=== PATIENT | female | born 1955 | race Caucasian/White ===

== ENCOUNTER 2016-07-02 07:21 | Emergency (ER) | payer OTHER ==
--- NOTE | 2016-07-02 07:40 | Emergency Department Record ---
History of Present Illness - General Chief complaint: Lower Extremity Pain Stated complaint: LEG PAIN Time Seen by Provider: 07/02/16 07:34 Source: Patient, RN notes reviewed Mode of Arrival: Ambulatory - History of Present Illness Initial comments: right leg pain which started at 5 am today ,No trauma and no injuries and kidney surg at [facility] feb 2016 , No flank or abdominal pain and history of kidney stones. Dr. Hartman. No vomiting and no nausea and no diarrhea. No back pain and she is on premarin and recent lithotripsy feb 2016 Onset/Timin -: Hour(s) Location: Right, Thigh Improves with: Nothing Worsens with: Nothing Associated Symptoms: Denies other symptoms - Related Data Home Medications Medication Instructions Recorded Confirmed Last Taken Estrogens, Conjugated [Premarin] 1 tab PO BID 10/10/13 07/02/16 07/02/16 Hydrocodone/Acetaminophen 1 tab PO ASDIR PRN 10/10/13 07/02/16 07/02/16 [Hydrocodon-Acetaminophn 10-325] Rabeprazole Sodium [Aciphex] 1 tab PO BID 10/10/13 07/02/16 07/02/16 Risedronate Sodium [Atelvia] 1 tab PO ASDIR 10/10/13 07/02/16 07/02/16 Rosuvastatin Calcium [Crestor] 1 tab PO DAILY 10/10/13 07/02/16 07/02/16 Bupropion HCl [Wellbutrin] 100 mg PO BID 10/18/14 07/02/16 07/02/16 Topiramate [Topiramate] 25 mg PO QHS 11/06/15 07/02/16 07/01/16 Citalopram Hydrobromide [Celexa] 20 mg PO DAILY 07/02/16 07/02/16 07/02/16 Pramipexole Di-HCl [Mirapex] 0.25 mg PO DAILY 07/02/16 07/02/16 07/02/16 Previous Rx's Medication Instructions Recorded Cyclobenzaprine HCl [Flexeril] 10 mg PO TID #30 tablet 07/02/16 Naproxen [Naprosyn] 500 mg PO Q12H #30 tab. 07/02/16 Allergies Allergy/AdvReac Type Severity Reaction Status Date / Time atorvastatin Allergy Unknown PT UNSURE Verified 11/06/15 14:36 OF REACTION ibuprofen Allergy Unknown PT UNSURE Verified 11/06/15 14:36 OF REACTION aspirin Allergy VOMITING Verified 11/06/15 14:36 Allergies: Allergy Unknown PT UNSURE Uncoded 11/06/15 14:36 OF REACTION Travel Screening - Travel/Exposure Within Last 30 Days Have you traveled within the last 30 days?: No - Travel/Exposure Within Last Year Have you traveled outside the [place] in the last year?: No - Additonal Travel Details Have you been exposed to anyone with a communicable illness?: No - Travel Symptoms Symptom Screening: None Review of Systems Reviewed: No additional complaints except as noted below Constitutional: Reports: As per HPI. Denies: Chills, Fever, Malaise, Night sweats, Weakness, Weight change Eyes: Reports: As per HPI. Denies: Eye discharge, Eye pain, Photophobia, Vision change ENT: Reports: As per HPI. Denies: Congestion, Dental pain, Ear pain, Epistaxis , Hearing loss, Throat pain Respiratory: Reports: As per HPI. Denies: Cough, Dyspnea, Hemoptysis, Stridor, Wheezes Cardiovascular: Reports: As per HPI. Denies: Arrhythmia, Chest pain, Dyspnea on exertion, Edema, Murmurs, Orthopnea, Palpitations, Paroxysmal nocturnal dyspnea, Rheumatic Fever, Syncope Endocrine: Reports: As per HPI. Denies: Fatigue, Heat or cold intolerance, Polydipsia, Polyuria Gastrointestinal: Reports: As per HPI, Abdominal pain. Denies: Constipation, Diarrhea, Hematemesis, Hematochezia, Melena, Nausea, Vomiting Genitourinary: Reports: As per HPI. Denies: Abnormal menses, Discharge, Dyspareunia, Dysuria, Frequency, Hematuria, Incontinence, Retention, Urgency Musculoskeletal: Reports: As per HPI, Other (right leg pain). Denies: Arthralgia, Back pain, Gout, Joint swelling, Myalgia, Neck pain Skin: Reports: As per HPI. Denies: Bruising, Change in color, Change in hair/ nails, Lesions, Pruritus, Rash Neurological: Reports: As per HPI. Denies: Abnormal gait, Confusion, Headache, Numbness, Paresthesias, Seizure, Tingling, Tremors, Vertigo, Weakness Psychiatric: Reports: As per HPI. Denies: Anxiety, Auditory hallucinations, Depression, Homicidal thoughts, Suicidal thoughts, Visual hallucinations Hematological/Lymphatic: Reports: As per HPI. Denies: Anemia, Blood Clots, Easy bleeding, Easy bruising, Swollen glands Past Medical History - SOCIAL HISTORY Smoking Status: Former smoker Alcohol Use: None Drug Use: None - RESPIRATORY Hx Respiratory Disorders: Yes - CARDIOVASCULAR Hx Cardio Disorders: Yes Comment:: murmur - NEURO Hx Neuro Disorders: Yes Hx Headaches: Yes Hx of Migraines: Yes - GI Hx GI Disorders: Yes Hx Reflux: Yes Hx Irritable Bowel: Yes - Hx Genitourinary Disorders: No Comment:: renal mass - ENDOCRINE Hx Endocrine Disorders: No - MUSCULOSKELETAL Hx Musculoskeletal Disorders: Yes Hx Arthritis: Yes Hx Osteoporosis: Yes - PSYCH Hx Psych Problems: Yes Hx Anxiety: Yes Hx Depression: Yes Comment:: panic attacks - HEMATOLOGY/ONCOLOGY Hx Hematology/Oncology Disorders: No Family Medical History Any Significant Family History?: No Physical Exam - General General Appearance: Alert, Oriented x3, Cooperative, No acute distress - Head Head exam: Normal inspection - Eye Eye exam: Normal appearance, PERRL Pupils: Normal accommodation - ENT ENT exam: Normal exam, Mucous membranes moist, Normal external ear exam, Normal orophraynx, TM's normal bilaterally Ear exam: Normal external inspection. negative: External canal tenderness Nasal Exam: Normal inspection. negative: Discharge, Sinus tenderness Mouth exam: Normal external inspection, Tongue normal Teeth exam: Normal inspection. negative: Dental caries Throat exam: Normal inspection. negative: Tonsillar erythema, Tonsillar exudate - Neck Neck exam: Normal inspection, Full ROM. negative: Tenderness - Respiratory Respiratory exam: Normal lung sounds bilaterally. negative: Respiratory distress - Cardiovascular Cardiovascular Exam: Regular rate, Normal rhythm, Normal heart sounds - GI/Abdominal GI/Abdominal exam: Soft, Normal bowel sounds. negative: Tenderness - Rectal Rectal exam: Deferred - exam: Deferred - Extremities Extremities exam: Normal inspection, Full ROM, Normal capillary refill, Tenderness (right lower and starts in the groin and goes down the leg.) - Back Back exam: Reports: Normal inspection, Full ROM. Denies: Muscle spasm, Rash noted, Tenderness - Neurological Neurological exam: Alert, Normal gait, Oriented X3, Reflexes normal - Psychiatric Psychiatric exam: Normal affect, Normal mood - Skin Skin exam: Dry, Intact, Normal color, Warm Course Vital Signs 07/02/16 07:24 Temperature 97.8 F Pulse Rate 88 Respiratory 20 Rate Blood Pressure 149/79 Pulse Ox 96 - Reevaluation(s) Reevaluation #1: some better and still having later leg pain. 07/02/16 10:40 Medical Decision Making - Data Complexity MDM Data: Labs Ordered and/or Reviewed, X-Ray Ordered and/or Reviewed (venous dopler neg, Ct scan neg with stones in the left kidney and patient doesn't have left sided pain) - Lab Data Result diagrams: 07/02/16 07:52 07/02/16 07:52 Disposition Clinical Impression: Lumbar strain Qualifiers: Encounter type: initial encounter Qualified Code(s): S39.012A - Strain of muscle, fascia and tendon of lower back, initial encounter Radiculopathy Qualifiers: Spinal region: lumbosacral Qualified Code(s): M54.17 - Radiculopathy, lumbosacral region Disposition: Home, Self-Care Condition: (1) Good Instructions: Musculoskeletal Pain (ED) Additional Instructions: follow up with family in 2 days Prescriptions: Cyclobenzaprine HCl [Flexeril] 10 mg PO TID #30 tablet Naproxen [Naprosyn] 500 mg PO Q12H #30 tab.dr Forms: Patient Portal Access Time of Disposition: 10:45
[2016-07-02] MEDS ORDERED: HYDROMORPHONE HCL 1 MG/ML CPJ IVP ONE ×2 (07:46→08:32)
[2016-07-02] MEDS ORDERED: 0.9 % SODIUM CHLORIDE 1000ML 1,000 ML IV PRN (07:46)
[2016-07-02 07:58] LABS: BASO % 0.6 % (0-6); EOS % 2.6 % (0-6); GRAN % 58.5 % (47-80); HEMATOCRIT 38.6 % (35.0-47.0); HEMOGLOBIN 12.3 gm/dl (11.6-16.0); LYMPH % 34.5 % (16-45); MEAN CELL VOLUME 87.1 fl (81-97); MEAN CORPUSCULAR HEMOGLOBIN 27.8 pg (27-33); MEAN CORPUSCULAR HGB CONC 31.9 g/dl (32-36); MEAN PLATELET VOLUME 8.8 fl (7.4-10.4); MONO % 3.8 % (0-9); PLATELET COUNT 353 K/uL (130-400); RED BLOOD COUNT 4.43 M/uL (3.80-5.40); RED CELL DISTRIBUTION WIDTH 13.4 % (11.5-14.5); WHITE BLOOD COUNT W/O DIFF 9.4 K/uL (4.2-12.2)
[2016-07-02 08:10] LABS: ALBUMIN 3.8 gm/dL (3.5-5.0); ALKALINE PHOSPHATASE 87 U/L (38-126); ALT/SGPT 13 U/L (9-52); ANION GAP 8.3 (7-16); AST/SGOT 17 U/L (14-36); BILIRUBIN,TOTAL 0.24 mg/dL (0.2-1.3); BLOOD UREA NITROGEN 13 mg/dL (7-17); CARBON DIOXIDE 23.7 mmol/L (22-30); CREATININE 0.8 mg/dL (0.52-1.04); EST GLOMERULAR FILTRATION RATE > 60 ml/min; GLUCOSE,RANDOM 147 mg/dL (70-110); TOTAL PROTEIN 6.8 gm/dL (6.3-8.2)
[2016-07-02 08:30] LABS: URINE APPEARANCE CLEAR; URINE BILIRUBIN NEGATIVE (NEGATIVE); URINE BLOOD TRACE-I (NEGATIVE); URINE COLOR YELLOW; URINE GLUCOSE (UA) NEGATIVE (NEGATIVE); URINE KETONE NEGATIVE (NEGATIVE); URINE LEUKOCYTE ESTERASE NEGATIVE (NEGATIVE); URINE NITRITE NEGATIVE (NEGATIVE); URINE PROTEIN TRACE (NEGATIVE); URINE UROBILINOGEN 0.2 E.U./dL (0.20 - 1.00)
[2016-07-02 08:40] LABS: URINE BACTERIA NONE SEEN; URINE EPITHELIAL CELLS 0 - 2 (FEW); URINE RBC 0 - 2 (NONE SEEN); URINE WBC NONE SEEN (0-2/hpf)
[2016-07-02] MEDS ORDERED: LORAZEPAM 2 MG/ML VIAL IV ONE (09:20)
--- NOTE | 2016-07-03 10:26 | CT SCAN REPORT ---
EXAM: EMERGENCY CT OF THE ABDOMEN AND PELVIS WITHOUT CONTRAST HISTORY: LEFT THIGH PAIN AND RIGHT LEG PAIN, HISTORY OF KIDNEY STONES. TECHNIQUE: Axial CT scan of the abdomen and pelvis was performed without oral or IV contrast. Comparison: CT of the abdomen and pelvis 06/03/16. FINDINGS: No intrarenal calculi identified within the right kidney. No hydronephrosis or hydroureter on the right with no right ureteral calculus seen and no bladder calculus. On the left, there is some apparent postop/post procedure change in the lower pole of the left kidney as before. There is an approximately 8.7 mm calcification in the left renal pelvis which is nonobstructing currently, however, there is a smaller calcification at the level of the left UPJ measuring about 3.3 mm in size which is likely causing a component of obstruction on the left with moderate hydronephrosis present today, progressed from the prior study. Beyond the left UPJ itself, the left ureter appears nondilated with no additional more distal left ureteral calculus seen. Surgical clips in the gallbladder fossa as before consistent with cholecystectomy. The uterus is again not identified consistent with hysterectomy and apparent metallic mesh along the anterior abdominal wall as before consistent with prior anterior abdominal wall hernia repair. Evaluation of the bowel and viscera is very limited without oral or IV contrast. There again appears to be an approximately 11 mm predominantly fat density nodule associated with the left adrenal gland as before consistent with a small adrenal myolipoma unchanged from before. Allowing for the lack of contrast, no definite hepatic, pancreatic, or renal mass identified. Mild diverticulosis left side of the colon with a few in the right side of the colon as well. No diverticulitis evident. The appendix is visualized and appears negative with no appendicitis identified. No free intraperitoneal air or free intraperitoneal fluid identified. Hypertrophic spurring particularly in the lower thoracic spine and facet joint arthropathy particularly in the lower lumbar spine. IMPRESSION: 1. APPEARANCE CONSISTENT WITH AN APPROXIMATELY 3.3 MM CALCULUS AT THE LEFT UPJ CAUSING A COMPONENT OF OBSTRUCTION OF THE LEFT KIDNEY. THERE IS AN ADDITIONAL LARGER, BUT CURRENTLY NONOBSTRUCTING CALCULUS WITHIN THE LEFT RENAL PELVIS ITSELF WELL. 2. POSTOP/POST PROCEDURE FINDINGS INVOLVING THE LOWER POLE OF THE LEFT KIDNEY BEFORE. 3. POSTOP CHOLECYSTECTOMY, HYSTERECTOMY, AND ANTERIOR ABDOMINAL WALL HERNIA REPAIR BEFORE. 4. THE APPENDIX APPEARS NEGATIVE. 5. SCATTERED DIVERTICULOSIS IN THE COLON WITH NO DIVERTICULITIS EVIDENT. 6. HYPERTROPHIC AND DEGENERATIVE CHANGES IN THE SPINE. 7. APPEARANCE CONSISTENT WITH A SMALL LEFT ADRENAL MYOLIPOMA, UNCHANGED FROM BEFORE. JOB NUMBER: [id number] MTDD
--- NOTE | 2016-07-03 10:30 | US VENOUS DOPPLER REPORT ---
EXAM: EMERGENCY VENOUS DOPPLER ULTRASOUND OF THE RIGHT LOWER EXTREMITY HISTORY: RIGHT LEG PAIN, POSSIBLE DVT. TECHNIQUE: Venous Doppler ultrasound of the right lower extremity was performed with color flow and spectral analysis Doppler. Compression and flow augmentation maneuvers were obtained in the thigh and popliteal region as well. Comparison: None. FINDINGS: The venous Doppler ultrasound of the right lower extremity is negative. No DVT evident with the venous anatomy evaluated from the region of the right common femoral vein down through the thigh and popliteal region into the calf with the anterior and posterior tibial veins as well as peroneal vein all visualized in the calf with no DVT evident. IMPRESSION: NEGATIVE VENOUS DOPPLER ULTRASOUND OF THE RIGHT LOWER EXTREMITY. JOB NUMBER: [id number] MTDD
== END 2016-07-02 11:08 | disposition home or self-care (01) ==
LOC: ER 07:21
DX: S39.012A Strain of muscle, fascia and tendon of lower back, initial encounter (principal); M54.17 Radiculopathy, lumbosacral region; N20.0 Calculus of kidney; Z87.442 Personal history of urinary calculi; X58.XXXA Exposure to other specified factors, initial encounter
CPT/HCPCS: 99284 ×2; 96376; 96374; 96375; 96361; 85025; 80076; 80048; 81001; 93971; 74176; J2060; J1170

== ENCOUNTER 2017-10-01 07:25 | Day surgery (SDC) | payer BC ==
[2017-10-01] MEDS ORDERED: PROPOFOL 10 MG/ML VIAL IV ONE (07:26)
[2017-10-01] MEDS ORDERED: ACETAMINOPHEN 1,000 MG/100 ML BTL IV ONE (07:26)
[2017-10-01] MEDS ORDERED: CEFAZOLIN 2 Gram 2 GM/50 ML BAG IVPB ONE (07:26)
[2017-10-01] MEDS ORDERED: FENTANYL PF 100MCG/2ML VIAL IV ONE ×2 (07:26)
[2017-10-01] MEDS ORDERED: LIDOCAINE 1% MDV (10MG/ML) 20ML VIAL SQ ONE (07:26)
[2017-10-01] MEDS ORDERED: ONDANSETRON HCL IV 4 MG/2 ML VIAL IVP ONE (07:26)
[2017-10-01] MEDS ORDERED: HYDROCODONE/APAP 7.5/325MG TABLET PO ONE (07:26)
[2017-10-01] MEDS ORDERED: SEVOFLURANE 250 ML INH ONE (07:26)
--- NOTE | 2017-10-02 09:50 | Operative Note ---
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 OPERATION: Hemiarthroplasty of the carpal metacarpal joint of the left thumb using a 3.5 loupe magnification. Anesthesia: General. PROCEDURE: This 61-year-old female was taken to the operating room and placed in the supine position on the operating room table. General anesthesia was administered and the left upper extremity was elevated and exsanguinated and the tourniquet inflated to 250 mmHg. A longitudinal incision was made from just distal to the radial styloid to approximately 3[address] the metacarpal of the left thumb. A straight incision was made, dissecting down through the skin and subcutaneous tissue and incision through the subcutaneous tissue to expose the extensor pollicis brevis and extensor pollicis longus tendons. An incision was made between the two and capsulotomy was subsequently performed, safely retracting the radial artery in a dorsal direction. The subperiosteal elevation of the periosteum of the proximal metacarpal was performed. This was then carried around to the volar aspect of the thumb and also then around the radial side to expose the proximal thumb metacarpal. This was then subluxed and found to be satisfactorily released. We measured the size to a size small and subsequently the measuring device was used to make a darin on the proximal metacarpal where the osteotomy would be performed and approximately 4 mm of bone was removed from the proximal metacarpal and a sliver of bone with the articular surface was removed. We then dissected around the trapezium to expose it and the sizing disc was used and the center of the bone was easily identified and a 0.062 K-wire was then advanced through it down the center of the bone. The image intensifier was used to confirm satisfactory position and alignment. Once this had been accomplished, the reamer was used to ream to the appropriate depth, subsequently the finishing reamer was used. Osteophytes were removed from around the trapezium. The broach was a size 10 broach, was then advanced by hand into the metacarpal and again the image intensifier used to confirm satisfactory position and alignment of the broach, subsequently it was tapped into place and seemed to be quite firm and I did not feel that I would be able to get a size [address] and therefore the broach was tapped out and a trial was placed. Excellent fit of the trial was noted and excellent stability was also identified with range of motion of the joint. The trial component was then removed and the wound was copiously irrigated with lactated Ringer's solution and the final component was inserted. This was an [place] NuGrip size 10 small and this prosthetic device was impacted into place with excellent fit. The final component was reduced and found to be stable. The capsule was then repaired utilizing 0 Vicryl. The subcutaneous tissue closed with 4-0 Vicryl and the skin was closed with a running 4-0 nylon suture. The sterile dressings were applied with plaster splint immobilization with the thumb slightly abducted, a thumb spica splint was applied, and the patient was then taken to the recovery room in satisfactory condition. GROSS PATHOLOGIES: The patient demonstrated complete loss of the articular cartilage of the CMC joint with [id number] articulation being identified. The STT joint was seen to be satisfactory, subsequently the CMC arthroplasty was performed in the manner described above. A size 10 [place] NuGrip was impacted into place. The image intensifier was used to confirm position and alignment of the trial components, as well as the seating of the component into the trapezium and it was found to be satisfactory. FARHEEN
== END 2017-10-01 11:00 | disposition home or self-care (01) ==
LOC: SUR 07:25
PROVIDERS: ATTEND Orthopaedic Surgery
DX: M18.12 Unilateral primary osteoarthritis of first carpometacarpal joint, left hand (principal)
CPT/HCPCS: 76000; J2405

== ENCOUNTER 2018-09-23 10:15 | Inpatient (IN) | payer BC, MEDICARE ==
--- NOTE | 2018-09-23 10:30 | Emergency Department Record ---
History of Present Illness - General Chief Complaint: Abdominal Pain Stated Complaint: UPPER ABD PAIN Time Seen by Provider: 09/23/18 10:18 Source: Patient Mode of Arrival: Ambulatory Limitations: No limitations - History of Present Illness Initial Comments: 62 yo female presents with upper abdominal pain since September 16. She reports the onset was while lifting her husbands cooler of beer. The pain has been constant. No vomiting or diarrhea. No blood in her stools. She has had hernia repairs in this area in the past. No definite bulge that she has noticed. No fever. Normal appetite. Dr Robles is her PCP. She had her hernia surgery at [facility] but does not recall the doctor's name. No back pain. The pain she is is constant and reproducible with pushing. MD Complaint: Abdominal pain Location: Epigastric Radiation: Epigastric Migration to: Epigastric Quality: Aching Consistency: Constant Improves With: Rest Worsens With: Movement, Other (Palpitation) Context: Other (Onset while lifting) Associated Symptoms: Denies other symptoms - Related Data Previous Rx's Medication Instructions Recorded Naproxen [Naprosyn] 500 mg PO Q12H #30 tab. 07/02/16 Allergies Allergy/AdvReac Type Severity Reaction Status Date / Time atorvastatin Allergy Unknown MUSCLE PAIN Verified 09/23/18 10:32 ibuprofen Allergy Unknown NAUSEA AND Verified 09/23/18 10:32 VOMITING aspirin Allergy VOMITING Verified 09/23/18 10:32 diazepam [From Valium] AdvReac ALTERED Verified 09/23/18 10:32 MENTAL STATUS naproxen AdvReac NAUSEA AND Verified 09/23/18 10:32 VOMITING Review of Systems Constitutional: Denies: Chills, Fever, Malaise, Weakness Eyes: Denies: Eye discharge, Photophobia, Vision change ENT: Denies: Congestion, Throat pain Respiratory: Denies: Cough, Dyspnea Cardiovascular: Denies: Chest pain, Palpitations, Syncope Endocrine: Denies: Fatigue, Polydipsia, Polyuria Gastrointestinal: Reports: Abdominal pain. Denies: Constipation, Diarrhea, Hematemesis, Hematochezia, Melena, Nausea, Vomiting Genitourinary: Denies: Dysuria, Urgency Musculoskeletal: Denies: Arthralgia, Back pain, Myalgia Skin: Denies: Bruising, Change in color, Rash Neurological: Denies: Headache Psychiatric: Denies: Anxiety Hematological/Lymphatic: Denies: Easy bleeding, Easy bruising Past Medical History - SOCIAL HISTORY Smoking Status: Former smoker - RESPIRATORY Hx Respiratory Disorders: Yes Comment:: chronic dry cough from allergies - CARDIOVASCULAR Hx Cardio Disorders: Yes - NEURO Hx Neuro Disorders: Yes Hx Dizziness: Yes (unknown etiology) Hx Headaches: Yes (related to stress and allergies) Hx of Migraines: Yes (hasnt had in quite a while) - GI Hx GI Disorders: Yes Hx Reflux: Yes (on meds fair control) Hx Irritable Bowel: Yes - Hx Genitourinary Disorders: Yes Hx Bladder Problem: Yes (sress incontinence) Hx Renal Disease: Yes (cancer kidney) Comment:: renal mass - ENDOCRINE Hx Endocrine Disorders: No - MUSCULOSKELETAL Hx Musculoskeletal Disorders: Yes Hx Arthritis: Yes Hx Osteoporosis: Yes - PSYCH Hx Psych Problems: Yes Hx Anxiety: Yes Hx Depression: Yes Comment:: panic attacks - HEMATOLOGY/ONCOLOGY Hx Hematology/Oncology Disorders: Yes Hx Cancer: Yes (left kidney, uterine CA?) Family Medical History Family Hx Comment (NOT TO BE USED IN PLACE OF ITEMS BELOW): dads hx unknown Hx Cancer: Mother Physical Exam - General General Appearance: Alert, Oriented x3, Cooperative, No acute distress Limitations: No limitations - Head Head exam: Atraumatic, Normal inspection - Eye Eye exam: Normal appearance. negative: Conjunctival injection, Scleral icterus - ENT ENT exam: Normal exam, Mucous membranes moist Ear exam: Normal external inspection Nasal Exam: Normal inspection Mouth exam: Normal external inspection - Neck Neck exam: Normal inspection - Respiratory Respiratory exam: Normal lung sounds bilaterally. negative: Respiratory distress - Cardiovascular Cardiovascular Exam: Regular rate, Normal rhythm, Normal heart sounds - GI/Abdominal GI/Abdominal exam: Soft, Tenderness (Soft abdomen. Tender in the epigastrium. No definite mass or definite hernia). negative: Distended, Guarding, Rebound, Rigid - Rectal Rectal exam: Deferred - exam: Deferred - Extremities Extremities exam: Normal inspection. negative: Pedal edema, Tenderness - Back Back exam: Denies: CVA tenderness (R), CVA tenderness (L) - Neurological Neurological exam: Alert, Oriented X3 - Psychiatric Psychiatric exam: Normal affect, Normal mood - Skin Skin exam: Dry, Intact, Normal color, Warm Course - Reevaluation(s) Reevaluation #1: The CBC,CMP and Lipase were reviewed The WBC is 12.7 No other acute changes. 09/23/18 11:22 09/23/18 12:53 Radiology contacted regarding the CT The patient has left portal vein thrombosis likely causing her pain 09/23/18 13:[address] Velez for possible admission Medical Decision Making - Lab Data Result diagrams: 09/23/18 10:34 09/23/18 10:34 Disposition Disposition: Admit Clinical Impression: Portal vein thrombosis Abdominal pain Qualifiers: Abdominal location: unspecified location Qualified Code(s): R10.9 - Unspecified abdominal pain Decision to Admit: Admit from ER Decision to Admit Date: 09/23/18 Decision to Admit Time: 14:23 Condition: (2) Stable Forms: Patient Portal Access Time of Disposition: 14:23 Quality - Quality Measures Quality Measures: N/A - Blood Pressure Screening Does Patient Have Any of the Following: Active Dx of HTN Blood Pressure Classification: Hypertensive Reading Systolic Measurement: 142 Diastolic Measurement: 68 Screening for High Blood Pressure: Patient Exclusion, Hx of HTN [G9744]
[2018-09-23] MEDS ORDERED: ACETAMINOPHEN 1,000 MG/100 ML BTL IVPB ONE (10:32)
[2018-09-23] MEDS ORDERED: 0.9 % SODIUM CHLORIDE 1,000 ML BAG IV ONE (10:32)
[2018-09-23 10:54] LABS: ABSOLUTE NEUTROPHIL COUNT 8.93; BASO % 0.4 % (0-6); EOS % 0.9 % (0-6); GRAN % 70.4 % (47-80); HEMATOCRIT 39.6 % (35.0-47.0); HEMOGLOBIN 12.3 gm/dl (11.6-16.0); LYMPH % 22.1 % (16-45); MEAN CELL VOLUME 86.1 fl (81-97); MEAN CORPUSCULAR HEMOGLOBIN 26.7 pg (27-33); MEAN CORPUSCULAR HGB CONC 31.1 g/dl (32-36); MEAN PLATELET VOLUME 8.8 fl (7.4-10.4); MONO % 6.2 % (0-9); PLATELET COUNT 461 K/uL (130-400); RED CELL DISTRIBUTION WIDTH 14.8 % (11.5-14.5); WHITE BLOOD COUNT W/O DIFF 12.7 K/uL (4.2-12.2)
[2018-09-23 11:10] LABS: BLOOD UREA NITROGEN 11 mg/dL (8-23); CREATININE 0.7 mg/dL (0.5-0.9); EST GLOMERULAR FILTRATION RATE > 60 mL/min
[2018-09-23 11:11] LABS: LIPASE 14 U/L (13-60); TOTAL PROTEIN 7.6 g/dL (6.6-8.7)
[2018-09-23 11:13] LABS: GLUCOSE,RANDOM 115 mg/dL (74-109)
[2018-09-23 11:15] LABS: ALT/SGPT 10 U/L (<33)
[2018-09-23 11:16] LABS: ALB/GLOB RATIO 1.2 (1.1-1.8); ALBUMIN 4.2 g/dL (4.0-5.0); ALKALINE PHOSPHATASE 120 U/L (35-104); AST/SGOT 16 U/L (10.0-35.0)
[2018-09-23] MEDS ORDERED: HEPARIN SODIUM 1000 UNIT/1 ML 10ML VIAL IVP ONE (12:54)
[2018-09-23] MEDS ORDERED: MORPHINE SULFATE 10MG/1ML **1ML VIAL IVP ONE (12:55)
[2018-09-23] MEDS ORDERED: HEPARIN SODIUM/D5W 25,000 UNITS/500 ML BAG IV SCH ×2 (13:00→14:20)
[2018-09-23] MEDS ORDERED: MORPHINE SULFATE 10MG/1ML **1ML VIAL IVP PRN ×2 (14:20→15:04)
[2018-09-23] MEDS ORDERED: ONDANSETRON HCL IV 4 MG/2 ML VIAL IVP PRN (14:20)
[2018-09-23] MEDS: HYDROMORPHONE HCL 2 MG/ML VIAL IVP PRN ×2 (14:45→20:27)
--- NOTE | 2018-09-23 14:52 | History & Physical ---
History of Present Illness - Date of Service Date of Service for History & Physical: 09/23/18 - History of Present Illness Admitting Diagnosis: portal vein thrombosis History of Present Illness: Mrs. Hardy is a 62 y/o female presents with progressive abdominal pain since September 16. The patient says that her pain has increased from around 4/10 to 10/10 since then. She says that it is allover and it hurts when she moves. She denies nausea, vomiting or fever. She has extensive history of abdominal surgeries including and laproscopic cholecystectomy. She denies history of clots or previous use of anticoagulation. On arrival to the ED the patient has had significant abdominal pain requiring IV morphine which temporarily resolved her pain but on examination now she is describing diffuse pain. CT abdomen/pelvis reports evidence of previous surgeries but also findings consistent with left portal vein thrombosis. The patient has been started on IV heparin and admitted to the general medical floor for further management. PCP: Dr. Robles Travel Screening - Travel/Exposure Within Last 30 Days Have you traveled within the last 30 days?: No - Travel/Exposure Within Last Year Have you traveled outside the [place] in the last year?: No Location Detail:: [facility] - Additonal Travel Details Have you been exposed to anyone with a communicable illness?: No - Travel Symptoms Symptom Screening: None Review of Systems Constitutional: Denies: Chills, Fever, Malaise, Weakness Eyes: Denies: Eye discharge, Photophobia, Vision change ENT: Denies: Congestion, Throat pain Respiratory: Denies: Cough, Dyspnea Cardiovascular: Denies: Chest pain, Palpitations, Syncope Endocrine: Denies: Fatigue, Polydipsia, Polyuria Gastrointestinal: Reports: Abdominal pain. Denies: Constipation, Diarrhea, Hematemesis, Hematochezia, Melena, Nausea, Vomiting Genitourinary: Denies: Dysuria, Urgency Musculoskeletal: Denies: Arthralgia, Back pain, Myalgia Skin: Denies: Bruising, Change in color, Rash Neurological: Denies: Headache Psychiatric: Denies: Anxiety Hematological/Lymphatic: Denies: Easy bleeding, Easy bruising Past Medical History - SOCIAL HISTORY Smoking Status: Former smoker Alcohol Use: Occasional Alcohol Use Comment: 4/week Drug Use: None - RESPIRATORY Hx Respiratory Disorders: Yes Comment:: chronic dry cough from allergies - CARDIOVASCULAR Hx Cardio Disorders: Yes - NEURO Hx Neuro Disorders: Yes Hx Dizziness: Yes (unknown etiology) Hx Headaches: Yes (related to stress and allergies) Hx of Migraines: Yes (hasnt had in quite a while) - GI Hx GI Disorders: Yes Hx Reflux: Yes (on meds fair control) Hx Irritable Bowel: Yes - Hx Genitourinary Disorders: Yes Hx Bladder Problem: Yes (sress incontinence) Hx Renal Disease: Yes (cancer kidney) Comment:: renal mass - ENDOCRINE Hx Endocrine Disorders: No - MUSCULOSKELETAL Hx Musculoskeletal Disorders: Yes Hx Arthritis: Yes Hx Osteoporosis: Yes - PSYCH Hx Psych Problems: Yes Hx Anxiety: Yes Hx Depression: Yes Comment:: panic attacks - HEMATOLOGY/ONCOLOGY Hx Hematology/Oncology Disorders: Yes Hx Cancer: Yes (left kidney, uterine CA?) Family Medical History Any Significant Family History?: Yes Family Hx Comment (NOT TO BE USED IN PLACE OF ITEMS BELOW): dads hx unknown Hx Cancer: Mother Hx Diabetes: Brother/Sister Hx Heart Disease: Brother/Sister H&P Meds/Allergies - Allergies Allergies: Allergies Allergy/AdvReac Type Severity Reaction Status Date / Time atorvastatin Allergy Unknown MUSCLE PAIN Verified 09/23/18 10:32 ibuprofen Allergy Unknown NAUSEA AND Verified 09/23/18 10:32 VOMITING aspirin Allergy VOMITING Verified 09/23/18 10:32 diazepam [From Valium] AdvReac ALTERED Verified 09/23/18 10:32 MENTAL STATUS naproxen AdvReac NAUSEA AND Verified 09/23/18 10:32 VOMITING - Home Medications Previous Rx's Medication Instructions Recorded Naproxen [Naprosyn] 500 mg PO Q12H #30 tab 07/02/16 - Active Medications Active Medications: Current Medications Citalopram Hydrobromide (Celexa) 20 mg PO DAILY ELIZABETH Heparin Sodium/Dextrose (Heparin Sodium/D5w) 25,000 units in 500 mls @ 19.813 mls/hr IV TITRATE ELIZABETH; Protocol Last Admin: 09/23/18 13:39 Dose: 12 units/kg/hr, 19.813 mls/hr Documented by: Sodium Chloride () 1,000 mls @ 100 mls/hr IV .Q10H PRN PRN Reason: LARGE VOLUME IV Heparin Sodium/Dextrose (Heparin Sodium/D5w) 25,000 units in 500 mls @ 24.766 mls/hr IV TITRATE ELIZABETH; Protocol Morphine Sulfate (Morphine Sulfate) 5 mg IVP Q4H PRN PRN Reason: ABDOMINAL PAIN Non-Formulary Medication (Bupropion Hcl [Wellbutrin]) 100 mg PO BID ELIZABETH Non-Formulary Medication (Rabeprazole Sodium [Aciphex]) 1 tab PO BID ELIZABETH Non-Formulary Medication (Rosuvastatin Calcium [Crestor]) 1 tab PO DAILY EL[facility]ETH Ondansetron HCl (Zofran) 4 mg IVP Q4H PRN PRN Reason: NAUSEA Physical Exam - Vital Signs Vital Signs: Vital Signs - Last 24 Hrs Temp Pulse Resp BP Pulse Ox 09/23/18 14:48 98.5 F 69 20 142/68 95 09/23/18 10:20 98.5 F 69 20 142/68 95 - General General Appearance: Alert, Oriented x3, Cooperative, No acute distress Limitations: No limitations - Head Head exam: Atraumatic, Normal inspection - Eye Eye exam: Normal appearance. negative: Conjunctival injection, Scleral icterus - ENT ENT exam: Normal exam, Mucous membranes moist Ear exam: Normal external inspection Nasal Exam: Normal inspection Mouth exam: Normal external inspection - Neck Neck exam: Normal inspection - Respiratory Respiratory exam: Normal lung sounds bilaterally. negative: Respiratory distress - Cardiovascular Cardiovascular Exam: Regular rate, Normal rhythm, Normal heart sounds Peripheral Pulses: 3+: Radial (R), Radial (L), Dorsalis Pedis (R), Dorsalis Pedis (L) - GI/Abdominal GI/Abdominal exam: Soft, Tenderness (Soft abdomen. Tender in the epigastrium. No definite mass or definite hernia). negative: Distended, Guarding, Rebound, Rigid - Rectal Rectal exam: Deferred - exam: Deferred - Extremities Extremities exam: Normal inspection. negative: Pedal edema, Tenderness - Back Back exam: Denies: CVA tenderness (R), CVA tenderness (L) - Neurological Neurological exam: Alert, Oriented X3 - Psychiatric Psychiatric exam: Normal affect, Normal mood - Skin Skin exam: Dry, Intact, Normal color, Warm Results - Labs Result Diagrams: 09/23/18 10:34 09/23/18 10:34 Labs Last 24 Hours: Laboratory Results - last 24 hr 09/23/18 09/23/18 10:34 10:34 WBC 12.7 H RBC 4.60 Hgb 12.3 Hct 39.6 MCV 86.1 MCH 26.7 L MCHC 31.1 L RDW 14.8 H Plt Count 461 H MPV 8.8 Gran % 70.4 Lymphocytes % 22.1 Monocytes % 6.2 Eosinophils % 0.9 Basophils % 0.4 Absolute Neutrophils 8.93 Sodium 139 Potassium 4.1 Chloride 100 Carbon Dioxide 24.0 Anion Gap 15.0 BUN 11 Creatinine 0.7 Estimated GFR > 60 Random Glucose 115 H Calcium 9.5 Total Bilirubin 0.40 AST 16 ALT 10 Alkaline Phosphatase 120 H Total Protein 7.6 Albumin 4.2 Globulin 3.4 Albumin/Globulin Ratio 1.2 Lipase 14 VTE H&P Assessment - Risk for VTE Risk for VTE: Yes Risk Level: High Risk Assessment Date: 09/23/18 Risk Assessment Time: 14:51 VTE Orders Placed or Will Be Placed: Yes Plan - Inpatient Certification Inpatient Certification: Admit to inpatient care: Based on my medical assessment, after consideration of patient's risk factors (age, co-morbidities and patient presenting symptoms and acuity), I expect that this patient will remain in the hospital greater than or equal to two midnights and that the services needed warrant inpatient care because: Patient Risk Factors: Portal thrombosis, Acute abdominal pain Estimated length of stay: The patient may reasonably be expected to be discharged or transferred to a hospital within 96 hours after admission to [facility]. I certify that my determination is in accordance with my understanding of Medicare requirements for reasonable and necessary inpatient services. 09/23/18 14:51 09/23/18 15:23 - Detailed Diagnosis and Plan (1) Abdominal pain Current Visit: Yes Status: Acute Qualifiers: Abdominal location: unspecified location Qualified Code(s): R10.9 - Unspecified abdominal pain Base Code: R10.9 - UNSPECIFIED ABDOMINAL PAIN Comment: 09/23/18: - 2/2 portal vein thrombosis noted on CT abdomen/pelvis. - Morphine 2mg Q6H ELIZABETH, Dilaudid 1mg Q4H PRN for breakthrough pain. (2) Portal vein thrombosis Current Visit: Yes Status: Acute Base Code: I81 - PORTAL VEIN THROMBOSIS Comment: 09/23/18: - Ct abdomen/pelvis: left portal vein thrmobosis with extension into its branches with periportal edema. Elevated Alk phos, LFTs WNL. - Continue with IV heparin pharmacy to dose. Change to oral anticoagulant at discharge. - Supportive care/pain control with morphine 2mg Q6H ELIZABETH, Dilaudid 1mg Q4H PRN. - Zofran Q4H PRN. (3) Depression Current Visit: Yes Status: Acute Base Code: F32.9 - MAJOR DEPRESSIVE DISORD ER, SINGLE EPISODE, UNSPECIFIED Comment: 09/23/18: - Resume home doses of Celexa, and Wellbutrin. (4) DVT prophylaxis Current Visit: Yes Status: Acute Base Code: Z29.9 - ENCOUNTER FOR PROPHYLACTIC MEASURES, UNSPECIFIED Comment: 09/23/18: - Anticoagulated due to thrombosis. (5) Full code status Current Visit: Yes Status: Acute Base Code: Z78.9 - OTHER SPECIFIED HEALTH STATUS Comment: 09/23/18: - The patient is full code.
[2018-09-23] MEDS: 0.9 % SODIUM CHLORIDE 1000ML 1,000 ML IV PRN (16:22)
[2018-09-23 20:34] LABS: PARTIAL THROMBOPLASTIN TIME 40.1 SECONDS (24.5-39.1); PROTHROMBIN TIME (PATIENT) 10.2 SECONDS (9.5-12.1)
[2018-09-23] MEDS: BUPROPION HCL 100 MG PO SCH (21:11)
[2018-09-24] MEDS: 0.9 % SODIUM CHLORIDE 1000ML 1,000 ML IV PRN ×3 (01:33→19:28)
[2018-09-24] MEDS: HYDROMORPHONE HCL 2 MG/ML VIAL IVP PRN ×5 (01:39→21:21)
[2018-09-24 04:24] LABS: ABSOLUTE NEUTROPHIL COUNT 6.48; BASO % 0.5 % (0-6); EOS % 1.7 % (0-6); GRAN % 60.6 % (47-80); HEMATOCRIT 35.8 % (35.0-47.0); HEMOGLOBIN 10.8 gm/dl (11.6-16.0); LYMPH % 29.9 % (16-45); MEAN CORPUSCULAR HEMOGLOBIN 26.5 pg (27-33); MEAN CORPUSCULAR HGB CONC 30.2 g/dl (32-36); MEAN PLATELET VOLUME 8.6 fl (7.4-10.4); MONO % 7.3 % (0-9); PLATELET COUNT 392 K/uL (130-400); RED BLOOD COUNT 4.07 M/uL (3.80-5.40); RED CELL DISTRIBUTION WIDTH 14.8 % (11.5-14.5); WHITE BLOOD COUNT W/O DIFF 10.7 K/uL (4.2-12.2)
[2018-09-24 04:36] LABS: ALB/GLOB RATIO 1.2 (1.1-1.8); ALBUMIN 3.6 g/dL (4.0-5.0); ALKALINE PHOSPHATASE 152 U/L (35-104); ALT/SGPT 12 U/L (<33); AST/SGOT 22 U/L (10.0-35.0); BLOOD UREA NITROGEN 10 mg/dL (8-23); CREATININE 0.7 mg/dL (0.5-0.9); EST GLOMERULAR FILTRATION RATE > 60 mL/min; GLUCOSE,RANDOM 114 mg/dL (74-109); TOTAL PROTEIN 6.5 g/dL (6.6-8.7)
[2018-09-24] MEDS ORDERED: HEPARIN SODIUM 1000 UNIT/1 ML 10ML VIAL IVP ONE (05:41)
[2018-09-24] MEDS: PANTOPRAZOLE SODIUM 40 MG TABLET PO SCH (06:10)
--- NOTE | 2018-09-24 08:00 | CT SCAN REPORT ---
EXAM: CT OF THE ABDOMEN AND PELVIS WITH CONTRAST HISTORY: EPIGASTRIC PAIN SINCE 09/16/18. HISTORY OF LEFT RENAL CARCINOMA STATUS POST PARTIAL NEPHRECTOMY. OVARIAN CARCINOMA. STATUS POST CHOLECYSTECTOMY AND HYSTERECTOMY. TECHNIQUE: Following oral and intravenous contrast administration, helical CT examination of the abdomen and pelvis was performed including delayed images through the kidneys with 100 ml of Omnipaque 300 utilized. Comparison: CT abdomen and pelvis without and with contrast (CT urogram) dated 06/08/18. FINDINGS: Minor patchy opacities within the dependent lung bases likely relate to atelectasis. The visualized lung bases are otherwise clear. No pleural or pericardial effusion. The heart is at the upper limits of normal in size. New since the prior examination is thrombosis of the left poral vein and its branches associated with periportal edema. The etiology of this is uncertain. The main portal vein, right portal vein, and right portal vein branches appear patent as do the hepatic veins. No definite hepatic mass. The spleen, pancreas, and right adrenal gland are normal in appearance. There is suggestion of a thin walled fat density mass arising from the left adrenal gland measuring 13 mm in diameter. This is unchanged and is consistent with lipoma or myelolipoma. The gallbladder is surgically absent. No gross biliary ductal dilatation. Partial nephrectomy changes involving the lower pole of the left kidney appears stable with no definite recurrent mass visualized. There is likely scarring scattered throughout the left kidney. There is redemonstration of a 2 mm nonobstructing calculus in the mid left kidney. No focal abnormality of the right kidney. No obstructive uropathy. There are gastrohepatic ligament lymph nodes visualized. The largest measures 9.3 mm in short axis diameter. These are slightly more pronounced in the interval though are not considered pathologically enlarged. No definite new enlarged intraabdominal nor retroperitoneal lymph node. The uterus is surgically absent. No intrinsic urinary bladder abnormality. No gross bowel dilatation nor bowel wall thickening. The appendix is visualized and normal in appearance. Occasional diverticula are noted within the left colon without evidence of diverticulitis. Post ventral wall hernia repair changes are noted in the upper abdomen centered near the midline where mesh is present. A small fat filled umbilical hernia is present. No lytic or blastic bone lesion. There are degenerative changes scattered throughout the visualized spine. IMPRESSION: 1. FINDINGS CONSISTENT WITH THROMBUS OF THE LEFT PORTAL VEIN AND ITS BRANCHES WITH ASSOCIATED PERIPORTAL EDEMA. THE ETIOLOGY OF THIS IS UNCERTAIN. 2. STATUS POST CHOLECYSTECTOMY, PARTIAL LEFT NEPHRECTOMY, AND HYSTERECTOMY. 3. STABLE NONOBSTRUCTING CALCULUS IN THE LEFT MID KIDNEY. 4. THIN WALLED FAT DENSITY LEFT ADRENAL MASS REDEMONSTRATED CONSISTENT WITH LIPOMA OR MYELOLIPOMA. 5. MILD COLONIC DIVERTICULOSIS WITHOUT EVIDENCE OF DIVERTICULITIS. 6. STATUS POST VENTRAL WALL HERNIA REPAIR. TINY FAT FILLED UMBILICAL HERNIA. JOB NUMBER: [id number] [facility]
--- NOTE | 2018-09-24 09:45 | Physician Progress Note ---
Subjective - Date Date of Physician Progress Note: 09/24/18 - Subjective Subjective Comment: The patient is awake, alert and oriented. She says that she was doing well last night but when she got up to use the restroom this morning she had some pain. She denies bleeding, bruising or any other new symptoms. Her pain this morning is 5/10 compared to yesterday. Radiation: Abdomen Severity scale (1-10): 5 Quality: Aching Consistency: Intermittent Improves with: Medication Worsens with: Movement Associated symptoms: Denies other symptoms Objective - Vital Signs Vital Signs: Vital Signs - Last 24 Hrs Temp Pulse Pulse Resp BP BP Pulse Ox 09/24/18 07:38 98.1 F 84 20 116/74 95 09/23/18 20:32 97.9 F 81 20 133/78 95 09/23/18 14:48 98.5 F 69 20 142/68 95 09/23/18 14:45 97.6 F 82 20 125/73 91 L 09/23/18 10:20 98.5 F 69 20 142/68 95 - General General Appearance: Alert, Oriented x3, Cooperative, No acute distress Limitations: No limitations - Head Head exam: Atraumatic, Normal inspection - Eye Eye exam: Normal appearance. negative: Conjunctival injection, Scleral icterus - ENT ENT exam: Normal exam, Mucous membranes moist Ear exam: Normal external inspection Nasal Exam: Normal inspection Mouth exam: Normal external inspection - Neck Neck exam: Normal inspection - Respiratory Respiratory exam: Normal lung sounds bilaterally. negative: Respiratory distress - Cardiovascular Cardiovascular Exam: Regular rate, Normal rhythm, Normal heart sounds Peripheral Pulses: 3+: Radial (R), Radial (L), Dorsalis Pedis (R), Dorsalis Pedis (L) - GI/Abdominal GI/Abdominal exam: Soft, Tenderness (Soft abdomen. Tender in the epigastrium. No definite mass or definite hernia). negative: Distended, Guarding, Rebound, Rigid - Rectal Rectal exam: Deferred - exam: Deferred - Extremities Extremities exam: Normal inspection. negative: Pedal edema, Tenderness - Back Back exam: Denies: CVA tenderness (R), CVA tenderness (L) - Neurological Neurological exam: Alert, Oriented X3 - Psychiatric Psychiatric exam: Normal affect, Normal mood - Skin Skin exam: Dry, Intact, Normal color, Warm Assessment and Plan - Assessment and Plan (1) Abdominal pain Current Visit: Yes Status: Acute Qualifiers: Abdominal location: unspecified location Qualified Code(s): R10.9 - Unspecified abdominal pain Base Code: R10.9 - UNSPECIFIED ABDOMINAL PAIN Comment: 09/24/18: - Abdominal pain has improved to 5/10 - 2/2 portal vein thrombosis noted on CT abdomen/pelvis. - Morphine 2mg Q6H ELIZABETH, Dilaudid 1mg Q4H PRN for breakthrough pain. (2) Portal vein thrombosis Current Visit: Yes Status: Acute Base Code: I81 - PORTAL VEIN THROMBOSIS Comment: 09/24/18: - Ct abdomen/pelvis: left portal vein thrmobosis with extension into its branches with periportal edema. Elevated Alk phos 152 - D/C heparin drip and start Xarelto 15mg BID x 21 days then 20mg daily at discharge. - Supportive care/pain control with morphine 2mg Q6H ELIZABETH, Dilaudid 1mg Q4H PRN. - Zofran Q4H PRN. (3) Depression Current Visit: Yes Status: Acute Base Code: F32.9 - MAJOR DEPRESSIVE DISORDER, SINGLE EPISODE, UNSPECIFIED Comment: 09/24/18: - Resume home doses of Celexa, and Wellbutrin. (4) DVT prophylaxis Current Visit: Yes Status: Acute Base Code: Z29.9 - ENCOUNTER FOR PROPHYLACTIC MEASURES, UNSPECIFIED Comment: 09/24/18: - Anticoagulated due to thrombosis. (5) Full code status Current Visit: Yes Status: Acute Base Code: Z78.9 - OTHER SPECIFIED HEALTH STATUS Comment: 09/24/18: - The patient is full code. Results - Labs Result Diagrams: 09/24/18 04:15 09/24/18 04:15 Labs Last 24 Hours: Laboratory Results - last 24 hr 09/23/18 09/23/18 09/23/18 10:34 10:34 10:35 WBC 12.7 H RBC 4.60 Hgb 12.3 Hct 39.6 MCV 86.1 MCH 26.7 L MCHC 31.1 L RDW 14.8 H Plt Count 461 H MPV 8.8 Gran % 70.4 Lymphocytes % 22.1 Monocytes % 6.2 Eosinophils % 0.9 Basophils % 0.4 Absolute Neutrophils 8.93 PT INR APTT 28.0 Sodium 139 Potassium 4.1 Chloride 100 Carbon Dioxide 24.0 Anion Gap 15.0 BUN 11 Creatinine 0.7 Estimated GFR > 60 Random Glucose 115 H Calcium 9.5 Total Bilirubin 0.40 AST 16 ALT 10 Alkaline Phosphatase 120 H Total Protein 7.6 Albumin 4.2 Globulin 3.4 Albumin/Globulin Ratio 1.2 Lipase 14 09/23/18 09/24/18 09/24/18 20:20 04:15 04:15 WBC 10.7 RBC 4.07 Hgb 10.8 L Hct 35.8 MCV 88.0 MCH 26.5 L MCHC 30.2 L RDW 14.8 H Plt Count 392 MPV 8.6 Gran % 60.6 Lymphocytes % 29.9 Monocytes % 7.3 Eosinophils % 1.7 Basophils % 0.5 Absolute Neutrophils 6.48 PT 10.2 INR 1.0 APTT 40.1 H Sodium 139 Potassium 4.2 Chloride 103 Carbon Dioxide 24.0 Anion Gap 12.0 BUN 10 Creatinine 0.7 Estimated GFR > 60 Random Glucose 114 H Calcium 8.6 L Total Bilirubin 0.40 AST 22 ALT 12 Alkaline Phosphatase 152 H Total Protein 6.5 L Albumin 3.6 L Globulin 2.9 Albumin/Globulin Ratio 1.2 Lipase 09/24/18 04:15 WBC RBC Hgb Hct MCV MCH MCHC RDW Plt Count MPV Gran % Lymphocytes % Monocytes % Eosinophils % Basophils % Absolute Neutrophils PT INR APTT 41.5 H Sodium Potassium Chloride Carbon Dioxide Anion Gap BUN Creatinine Estimated GFR Random Glucose Calcium Total Bilirubin AST ALT Alkaline Phosphatase Total Protein Albumin Globulin Albumin/Globulin Ratio Lipase DVT/PE Assessment - Risk for VTE Risk for VTE: No Risk Level: High Risk Assessment Date: 09/23/18 Risk Assessment Time: 14:51 VTE Orders Placed or Will Be Placed: Yes - Active Medicaitons Current Medications: Current Medications Citalopram Hydrobromide (Celexa) 20 mg PO DAILY ELIZABETH Hydromorphone HCl (Dilaudid) 1 mg IVP Q4H PRN PRN Reason: ABDOMINAL PAIN Last Admin: 09/24/18 01:39 Dose: 1 mg Documented by: Sodium Chloride () 1,000 mls @ 100 mls/hr IV .Q10H PRN PRN Reason: LARGE VOLUME IV Last Admin: 09/24/18 01:33 Dose: 100 mls/hr Documented by: Heparin Sodium/Dextrose (Heparin Sodium/D5w) 25,000 units in 500 mls @ 24.766 mls/hr IV TITRATE ELIZABETH; Protocol Morphine Sulfate (Morphine Sulfate) 2 mg IVP Q6H PRN PRN Reason: ABDOMINAL PAIN Non-Formulary Medication (Bupropion Hcl [Wellbutrin]) 100 mg PO BID [facility] Last Admin: 09/23/18 21:11 Dose: Not Given Documented by: Non-Formulary Medication (Rosuvastatin Calcium [Crestor]) 1 tab PO DAILY [facility] Ondansetron HCl (Zofran) 4 mg IVP Q4H PRN PRN Reason: NAUSEA [facility]op[facility] Last Admin: 09/24/18 06:10 Dose: 40 mg Documented by: ELISHA Plan - Labs Result Diagrams: 09/24/18 04:15 09/24/18 04:15
[2018-09-24] MEDS: RIVAROXABAN 15 MG TABLET PO SCH ×2 (09:50→21:21)
[2018-09-24] MEDS: CITALOPRAM 20 MG TABLET PO SCH (09:50)
[2018-09-24] MEDS: DOCUSATE SODIUM 100 MG CAPSULE PO SCH (10:00)
[2018-09-24] MEDS ORDERED: PHENOL SORE THROAT SPRAY 177 ML BTL MM PRN (10:27)
[2018-09-24] MEDS: BUPROPION HCL 100 MG PO SCH (11:29)
[2018-09-24] MEDS: BUPROPION 200 MG PO SCH ×2 (13:31→21:25)
[2018-09-24] MEDS ORDERED: ROSUVASTATIN 10 MG PO SCH (22:00)
[2018-09-25] MEDS: 0.9 % SODIUM CHLORIDE 1000ML 1,000 ML IV PRN (05:42)
[2018-09-25] MEDS: PANTOPRAZOLE SODIUM 40 MG TABLET PO SCH ×2 (05:42→06:02)
[2018-09-25 06:10] LABS: ABSOLUTE NEUTROPHIL COUNT 7.44; BASO % 0.3 % (0-6); EOS % 0.9 % (0-6); HEMATOCRIT 34.6 % (35.0-47.0); HEMOGLOBIN 10.6 gm/dl (11.6-16.0); LYMPH % 21.9 % (16-45); MEAN CELL VOLUME 88.5 fl (81-97); MEAN CORPUSCULAR HEMOGLOBIN 27.1 pg (27-33); MEAN CORPUSCULAR HGB CONC 30.6 g/dl (32-36); MEAN PLATELET VOLUME 9.2 fl (7.4-10.4); MONO % 6.9 % (0-9); PLATELET COUNT 372 K/uL (130-400); RED BLOOD COUNT 3.91 M/uL (3.80-5.40); WHITE BLOOD COUNT W/O DIFF 10.6 K/uL (4.2-12.2)
--- NOTE | 2018-09-25 09:39 | Discharge Summary ---
Providers Discharge Summary Date: 09/25/18 Date of admission: 09/23/18 14:29 Attending physician: RENITA ESPINOZA Primary care physician: CHARLES ROBLES D.O. Physical Exam - Vital Signs Vital Signs: Vital Signs - Last 24 Hrs Temp Pulse Resp BP Pulse Ox 09/25/18 08:00 98.8 F 81 19 144/84 96 09/24/18 21:16 97.7 F 94 H 20 122/71 93 L 09/24/18 21:00 18 09/24/18 15:58 98.2 F 96 H 20 121/55 94 L 09/24/18 11:29 97.3 F L 86 18 129/40 96 - General General Appearance: Alert, Oriented x3, Cooperative, No acute distress Limitations: No limitations - Head Head exam: Atraumatic, Normal inspection - Eye Eye exam: Normal appearance. negative: Conjunctival injection, Scleral icterus - ENT ENT exam: Normal exam, Mucous membranes moist Ear exam: Normal external inspection Nasal Exam: Normal inspection Mouth exam: Normal external inspection - Neck Neck exam: Normal inspection - Respiratory Respiratory exam: Normal lung sounds bilaterally. negative: Respiratory distress - Cardiovascular Cardiovascular Exam: Regular rate, Normal rhythm, Normal heart sounds Peripheral Pulses: 3+: Radial (R), Radial (L), Dorsalis Pedis (R), Dorsalis Pedis (L) - GI/Abdominal GI/Abdominal exam: Soft, Tenderness (Soft abdomen. Tender in the epigastrium. No definite mass or definite hernia). negative: Distended, Guarding, Rebound, Rigid - Rectal Rectal exam: Deferred - exam: Deferred - Extremities Extremities exam: Normal inspection. negative: Pedal edema, Tenderness - Back Back exam: Denies: CVA tenderness (R), CVA tenderness (L) - Neurological Neurological exam: Alert, Oriented X3 - Psychiatric Psychiatric exam: Normal affect, Normal mood - Skin Skin exam: Dry, Intact, Normal color, Warm Hospitalization - Hospitalization Admission Diagnosis: portal vein thrombosis - Problem List/Discharge Diagnosis (1) Abdominal pain Current Visit: Yes Status: Acute Discharge Diagnosis: Abdominal location: unspecified location Qualified Code(s): R10.9 - Unspecified abdominal pain Base Code: R10.9 - UNSPECIFIED ABDOMINAL PAIN Comment: 09/25/18: - Abdominal pain has improving and now only intermittent. /10 in severity - 2/2 portal vein thrombosis noted on CT abdomen/pelvis. - Discontinued all IV Morphine 2mg Q6H ELIZABETH, Dilaudid 1mg Q4H PRN for breakthrough pain. Dilaudid 0.5mg Q8H PRN at discharge. Last Dilaudid raymon at 9:21 09/24 (2) Portal vein thrombosis Current Visit: Yes Status: Acute Base Code: I81 - PORTAL VEIN THROMBOSIS Comment: 09/25/18: - CT abdomen/pelvis: left portal vein thrmobosis with extension into its branches with periportal edema. Elevated Alk phos 152 - D/C heparin drip and start Xarelto 15mg BID x 21 days then 20mg daily at discharge. Explain anticoagualtion care with the patient and her this morning. - Supportive care/pain control with morphine 2mg Q6H ELIZABETH, Dilaudid 1mg Q4H PRN. - Zofran Q4H PRN. (3) Depression Current Visit: Yes Status: Acute Base Code: F32.9 - MAJOR DEPRESSIVE DISORDER, SINGLE EPISODE, UNSPECIFIED Comment: 09/25/18: - Resume home doses of Celexa, and Wellbutrin. (4) DVT prophylaxis Current Visit: Yes Status: Acute Base Code: Z29.9 - ENCOUNTER FOR PROPHYLACTIC MEASURES, UNSPECIFIED Comment: 09/25/18: - Anticoagulated due to thrombosis. (5) Full code status Current Visit: Yes Status: Acute Base Code: Z78.9 - OTHER SPECIFIED HEALTH STATUS Comment: 09/25/18: - The patient is full code. - Hospitalization Course Hospital Course: Mrs. Hardy is a 62 y/o female presents with progressive abdominal pain since September 16. The patient says that her pain has increased from around 4/10 to 10/10 since then. She says that it is allover and it hurts when she moves. She denies nausea, vomiting or fever. She has extensive history of abdominal surgeries including and laproscopic cholecystectomy. She denies history of clots or previous use of anticoagulation. On arrival to the ED the patient has had significant abdominal pain requiring IV morphine which temporarily resolved her pain but on examination now she is describing diffuse pain. CT abdomen/pelvis reports evidence of previous surgeries but also findings consistent with left portal vein thrombosis. The patient has been started on IV heparin and admitted to the general medical floor for further management. 09/24-09/25: The patient's pain was controlled with IV dilaudid and she was able to tolerate full diet. The patient complains of intermittent pain bust says that she feels much better. The patient's heparin drip was stopped yesterday and Xarelto started at the same time to continue with anticoagulation. The patient and her were educated on the risk and benefits of anticoagulation and the different medication options used. Labs have been unremarkable and vitals have been stable throughout her admission. PCP: Dr. Robles Procedures: Imaging and X-Rays 09/23/18 10:29 ABDOMEN/PELVIS W CONTRAST [CT] Stat Abnormal Labs: Abnormal Lab Results 09/23/18 09/23/18 09/23/18 Range/Units 10:34 10:34 20:20 WBC 12.7 H (4.2-12.2) K/uL Hgb (11.6-16.0) gm/dl Hct (35.0-47.0) % MCH 26.7 L (27-33) pg MCHC 31.1 L (32-36) g/dl RDW 14.8 H (11.5-14.5) % Plt Count 461 H (130-400) K/uL APTT 40.1 H (24.5-39.1) SECONDS Random Glucose 115 H (74-109) mg/dL Calcium (8.8-10.2) mg/dL Alkaline Phosphatase 120 H (35-104) U/L Total Protein (6.6-8.7) g/dL Albumin (4.0-5.0) g/dL 09/24/18 09/24/18 09/24/18 Range/Units 04:15 04:15 04:15 WBC (4.2-12.2) K/uL Hgb 10.8 L (11.6-16.0) gm/dl Hct (35.0-47.0) % MCH 26.5 L (27-33) pg MCHC 30.2 L (32-36) g/dl RDW 14.8 H (11.5-14.5) % Plt Count (130-400) K/uL APTT 41.5 H (24.5-39.1) SECONDS Random Glucose 114 H (74-109) mg/dL Calcium 8.6 L (8.8-10.2) mg/dL Alkaline Phosphatase 152 H (35-104) U/L Total Protein 6.5 L (6.6-8.7) g/dL Albumin 3.6 L (4.0-5.0) g/dL 09/25/18 Range/Units 05:45 WBC (4.2-12.2) K/uL Hgb 10.6 L (11.6-16.0) gm/dl Hct 34.6 L (35.0-47.0) % MCH (27-33) pg MCHC 30.6 L (32-36) g/dl RDW 15.0 H (11.5-14.5) % Plt Count (130-400) K/uL APTT (24.5-39.1) SECONDS Random Glucose (74-109) mg/dL Calcium (8.8-10.2) mg/dL Alkaline Phosphatase (35-104) U/L Total Protein (6.6-8.7) g/dL Albumin (4.0-5.0) g/dL Condition at Discharge: (2) Stable Discharge Medications - Discharge Medications Prescriptions: Docusate Sodium [Colace] 100 mg PO DAILY #30 cap Hydromorphone HCl [Dilaudid] 1 mg PO Q8H PRN #6 tab PRN Reason: Abdominal Pain Rivaroxaban [Xarelto] 15 mg PO BID 19 Days #39 tablet Home Medications: Ambulatory Orders Estrogens, Conjugated [Premarin] 1 tab PO BID 10/10/13 [Last Taken 09/22/18] Hydrocodone/Acetaminophen [Hydrocodon-Acetaminophn 10-325] 1 tab PO ASDIR PRN 10/10/13 [Last Taken 09/22/18] Rabeprazole Sodium [Aciphex] 1 tab PO BID 10/10/13 [Last Taken 09/22/18] Risedronate Sodium [Atelvia] 1 tab PO ASDIR 10/10/13 [Last Taken 09/22/18] Rosuvastatin Calcium [Crestor] 1 tab PO DAILY 10/10/13 [Last Taken 09/22/18] Bupropion HCl [Wellbutrin] 100 mg PO BID 10/18/14 [Last Taken 09/22/18] Topiramate 25 mg PO QHS 11/06/15 [Last Taken 09/22/18] Citalopram Hydrobromide [Celexa] 20 mg PO DAILY 07/02/16 [Last Taken 09/22/18] Docusate Sodium [Colace] 100 mg PO DAILY #30 cap 09/25/18 [Last Taken Unknown] Hydromorphone HCl [Dilaudid] 1 mg PO Q8H PRN #6 tab 09/25/18 [Last Taken Unknown ] Rivaroxaban [Xarelto] 15 mg PO BID 19 Days #39 tablet 09/25/18 [Last Taken Unknown] Discharge Plan - Discharge Instructions Diet at Discharge: Regular Diet Additional Instructions: Medications to take: Continue taking Xarelto 15mg twice daily for the next 20 days. (2018) Then change to Xarelto 20mg daily. This dose is to be prescribed by your PCP: Dr. Robles Dilaudid 0.5mg is to be used every 8 hours as needed for your pain. Follow up with Dr. Robles on September 27 as scheduled to discuss length of anticogulation therapy. Quality Measures - Quality Measures Quality Measures: Coronary Artery Disease: Antiplatelet Therapy, Documentation of Current Medications in Medical Record, Screening for High Blood Pressure and F/U Documented - Current Medications Quality Measure: Measure #130: Documentation of Current Medications Documentation of Current Medications: <Current Medications Documented/Reviewed> [G8427] - Blood Pressure Screening Quality Measure: Screening for High Blood Pressure and Follow-Up Documented Does Patient Have Any of the Following: No Blood Pressure Classification: Hypertensive Reading Systolic Measurement: 142 Diastolic Measurement: 68 Screening for High Blood Pressure: < First Hypertensive BP, F/U Documented > [G8950] First Hypertensive Follow-up Interventions: Lifestyle modifications., Referral to alternative/primary care provider. Lifestyle Modification: Weight Reduction, Dietary Sodium Restriction - Coronary Artery Disease Quality Measure: Measure #6: Coronary Artery Disease (CAD) Antiplatelet Therapy: Not Prescribed, Reason not Specified [4086F with 8P] - Elder Abuse Suspicion Index EASI Reference Information: Melissa HAMMOND, Luzma C, Ricki D, Roxi Redd.Development and validation of a tool to assist physicians identification of elder abuse: The Elder Abuse Suspicion Index (EASI ). Journal of Elder Abuse and Neglect, 2008; 20 (3): 276-300.
[2018-09-25] MEDS ORDERED: MAGNESIUM HYDROXIDE 30 ML UDC PO ONE (10:42)
[2018-09-25] MEDS: CITALOPRAM 20 MG TABLET PO SCH (10:48)
[2018-09-25] MEDS: DOCUSATE SODIUM 100 MG CAPSULE PO SCH (10:48)
[2018-09-25] MEDS: RIVAROXABAN 15 MG TABLET PO SCH (10:48)
[2018-09-25] MEDS: BUPROPION 200 MG PO SCH (10:50)
== END 2018-09-25 11:30 | disposition home or self-care (01) | DRG 392 ==
LOC: ER 10:15 → MEDSURG 14:29
PROVIDERS: ADMIT Internal Medicine; ATTEND Internal Medicine
DX: K21.9 Gastro-esophageal reflux disease without esophagitis (principal); R05 Cough; F32.9 Major depressive disorder, single episode, unspecified; N39.3 Stress incontinence (female) (male); M19.90 Unspecified osteoarthritis, unspecified site; F41.0 Panic disorder [episodic paroxysmal anxiety]; Z90.49 Acquired absence of other specified parts of digestive tract; Z87.891 Personal history of nicotine dependence; Z85.528 Personal history of other malignant neoplasm of kidney
CPT/HCPCS: 74177; 80053; 83690; 85025; 85610; 85730; 96365; 96374; 96375; 99223; 99233; 99239; 99285; J2270; J7030

== ENCOUNTER 2018-10-07 11:54 | Day surgery (SDC) | payer BC ==
[2018-10-07] MEDS ORDERED: LIDOCAINE 2% MDV (20MG/ML) 20ML VIAL IV ONE (11:55)
[2018-10-07] MEDS ORDERED: PROPOFOL 10 MG/ML VIAL IV ONE (11:55)
--- NOTE | 2018-10-08 10:20 | Operative Note ---
OPERATION: ESOPHAGOGASTRODUODENOSCOPY. PREOPERATIVE DIAGNOSIS: Questionable portal vein occlusion, rule out esophageal varices and chronic liver disease. POSTOPERATIVE DIAGNOSIS: Multiple gastric polyps, otherwise normal exam. PROCEDURE: After informed consent was obtained from the patient, she was placed in the left lateral decubitus position in the endoscopy suite, sedated and monitored by the department of anesthesia. A well-lubricated HPM099 gastroscope was placed in the posterior oropharynx under direct visualization and passed to the proximal esophagus. The endoscope was advanced through the proximal, mid, and distal esophagus. The distal esophagus demonstrated no obvious varices. The gastric body demonstrated multiple benign-appearing polyps. The gastric body and antrum, duodenal bulb and sweep were otherwise unremarkable. Forward and J-turn views of the proximal stomach were unrevealing. The endoscope was then straightened and retracted from the patient with no new findings or abnormalities identified. RECOMMENDATIONS: We will have the patient undergo an MRI of the abdomen to reevaluate her thromboses. As always, thank you for allowing me to participate in the healthcare of your patients. FARHEEN
== END 2018-10-07 13:48 | disposition home or self-care (01) ==
LOC: HOP 11:54
PROVIDERS: ATTEND Internal Medicine Gastroenterology
DX: I81 Portal vein thrombosis (principal); K31.7 Polyp of stomach and duodenum; E78.00 Pure hypercholesterolemia, unspecified; K21.9 Gastro-esophageal reflux disease without esophagitis; I74.9 Embolism and thrombosis of unspecified artery

== ENCOUNTER 2018-10-22 12:23 | Emergency (ER) | payer BC, MEDICARE ==
[2018-10-22] MEDS ORDERED: 0.9 % SODIUM CHLORIDE 1,000 ML BAG IV ONE (13:19)
--- NOTE | 2018-10-22 13:19 | Emergency Department Record ---
History of Present Illness - General Chief complaint: Weakness Stated complaint: inder/arms numb/ WEAK Time Seen by Provider: 10/22/18 13:11 Source: Patient, Family Mode of Arrival: Wheelchair Limitations: No limitations - History of Present Illness Initial comments: The patient is here due to not feeling well today. She has been fatigued for 2-3 days and then after waking up today she has been more weak all over. The symptoms come on mainly with standing. She also has had mild chest heaviness and INDER but that is gone now. The patient was hospitalized a month ago for AP and was found to have a portal vein thrombosis and now is on Xarelto. She has had no AP, fever, chills, or vomiting. MD Complaint: Generalized weakness Onset/Timin -: Days(s) Location: Generalized Consistency: Constant Improves with: None Worsens with: None Associated Symptoms: Shortness of breath, Other - Related Data Home Medications Medication Instructions Recorded Confirmed Last Taken Diclofenac Sodium [Voltaren] 100 gm TP Q6H 10/22/18 10/22/18 Unknown Pramipexole Di-HCl [Pramipexole ER] 0.75 mg PO QHS 10/22/18 10/22/18 Unknown Rivaroxaban [Xarelto] 20 mg PO DAILY 10/22/18 10/22/18 Unknown Previous Rx's Medication Instructions Recorded Docusate Sodium [Colace] 100 mg PO DAILY #30 cap 09/25/18 Hydromorphone HCl [Dilaudid] 1 mg PO Q8H PRN #6 tab 09/25/18 Allergies Allergy/AdvReac Type Severity Reaction Status Date / Time atorvastatin Allergy Unknown MUSCLE PAIN Verified 09/23/18 10:32 ibuprofen Allergy Unknown NAUSEA AND Verified 09/23/18 10:32 VOMITING aspirin Allergy VOMITING Verified 09/23/18 10:32 diazepam [From Valium] AdvReac ALTERED Verified 09/23/18 10:32 MENTAL STATUS naproxen AdvReac NAUSEA AND Verified 09/23/18 10:32 VOMITING Travel Screening - Travel/Exposure Within Last 30 Days Have you traveled within the last 30 days?: No Review of Systems Constitutional: Denies: Chills, Fever Eyes: Denies: Eye discharge ENT: Denies: Congestion Respiratory: Denies: Cough, Dyspnea Cardiovascular: Denies: Chest pain Endocrine: Reports: Fatigue Gastrointestinal: Denies: Abdominal pain, Nausea Genitourinary: Denies: Discharge Musculoskeletal: Denies: Arthralgia Neurological: Denies: Abnormal gait Past Medical History - SOCIAL HISTORY Smoking Status: Former smoker - RESPIRATORY Hx Respiratory Disorders: Yes Comment:: chronic dry cough from allergies - CARDIOVASCULAR Hx Cardio Disorders: Yes Comment:: clots in liver - NEURO Hx Neuro Disorders: Yes Hx Dizziness: Yes (unknown etiology) Hx Headaches: Yes (related to stress and allergies) Hx of Migraines: Yes (hasnt had in quite a while) - GI Hx GI Disorders: Yes Hx Reflux: Yes (on meds fair control) Hx Irritable Bowel: Yes Comment:: clots in liver - Hx Genitourinary Disorders: Yes Hx Bladder Problem: Yes (sress incontinence) Hx Renal Disease: Yes (cancer kidney) Comment:: renal mass - ENDOCRINE Hx Endocrine Disorders: No - MUSCULOSKELETAL Hx Musculoskeletal Disorders: Yes Hx Arthritis: Yes Hx Osteoporosis: Yes - PSYCH Hx Psych Problems: Yes Hx Anxiety: Yes Hx Depression: Yes Comment:: panic attacks - HEMATOLOGY/ONCOLOGY Hx Hematology/Oncology Disorders: Yes Hx Cancer: Yes (left kidney, uterine CA?) Family Medical History Any Significant Family History?: Yes Family Hx Comment (NOT TO BE USED IN PLACE OF ITEMS BELOW): dads hx unknown Hx Cancer: Mother Hx Diabetes: Brother/Sister Hx Heart Disease: Brother/Sister Physical Exam - General General Appearance: Alert, Oriented x3, Cooperative, No acute distress - Head Head exam: Atraumatic, Normocephalic, Normal inspection - Eye Eye exam: Normal appearance, PERRL, EOMI - ENT Throat exam: Normal inspection. negative: Tonsillar erythema, Tonsillar exudate - Neck Neck exam: Normal inspection, Full ROM. negative: Tenderness - Respiratory Respiratory exam: Normal lung sounds bilaterally. negative: Respiratory distress - Cardiovascular Cardiovascular Exam: Regular rate, Normal rhythm, Normal heart sounds. negative: Diastolic murmur, Systolic murmur - GI/Abdominal GI/Abdominal exam: Soft, Normal bowel sounds. negative: Rebound, Rigid, Tenderness - Extremities Extremities exam: Normal inspection, Full ROM, Normal capillary refill. negative: Tenderness - Back Back exam: Denies: Normal inspection, Vertebral tenderness - Neurological Neurological exam: Alert, Normal gait, Oriented X3. negative: Abnormal gait, Altered, Motor sensory deficit - Psychiatric Psychiatric exam: Flat affect - Skin Skin exam: negative: Rash Course Vital Signs 10/22/18 12:30 Temperature 98.1 F Pulse Rate 69 Respiratory 18 Rate Blood Pressure 120/64 Pulse Ox 96 - Reevaluation(s) Reevaluation #1: The patient is doing a lot better at this time. She states her weakness is gone and her arms no longer feel heavy and slightly numb. She did receive a liter of IVF and believes she was dehydrated. The patient is up walking without difficulty and would like to go home. 10/22/18 14:55 Medical Decision Making - Data Complexity MDM Data: Labs Ordered and/or Reviewed, EKG Ordered and/or Reviewed - Lab Data Result diagrams: 10/22/18 13:15 10/22/18 13:15 - EKG Data -: EKG Interpreted by Me EKG: No Acute Changes, Unchanged From Previous Disposition Disposition: Discharge Clinical Impression: Weakness Disposition: Home, Self-Care Condition: (2) Stable Instructions: Weakness (ED) Additional Instructions: Please drink plenty of fluids and continue your regular medicines. Please see your family doctor next week for recheck and return to the ER for any worsening symptoms. Forms: Patient Portal Access Time of Disposition: 14:57 Quality - Quality Measures Quality Measures: N/A - Blood Pressure Screening View Details: Yes Does Patient Have Any of the Following: No Blood Pressure Classification: Pre-Hypertensive BP Reading Systolic Measurement: 120 Diastolic Measurement: 64 Screening for High Blood Pressure: < Pre-Hypertensive BP, F/U Documented > [G8950] Pre-Hypertensive Follow-up Interventions: Referral to alternative/primary care provider.
[2018-10-22 13:29] LABS: ABSOLUTE NEUTROPHIL COUNT 4.56; BASO % 0.6 % (0-6); EOS % 1.3 % (0-6); GRAN % 55.8 % (47-80); LYMPH % 36.4 % (16-45); MEAN CELL VOLUME 85.2 fl (81-97); MEAN CORPUSCULAR HEMOGLOBIN 26.2 pg (27-33); MEAN CORPUSCULAR HGB CONC 30.8 g/dl (32-36); MEAN PLATELET VOLUME 8.9 fl (7.4-10.4); MONO % 5.9 % (0-9); PLATELET COUNT 386 K/uL (130-400); RED BLOOD COUNT 4.58 M/uL (3.80-5.40); RED CELL DISTRIBUTION WIDTH 14.6 % (11.5-14.5); WHITE BLOOD COUNT W/O DIFF 8.2 K/uL (4.2-12.2)
[2018-10-22 13:41] LABS: INR 1.2; PARTIAL THROMBOPLASTIN TIME 30.7 SECONDS (24.5-39.1); PROTHROMBIN TIME (PATIENT) 12.3 SECONDS (9.5-12.1)
[2018-10-22 13:44] LABS: BLOOD UREA NITROGEN 17 mg/dL (8-23); CREATININE 0.7 mg/dL (0.5-0.9); EST GLOMERULAR FILTRATION RATE > 60 mL/min
[2018-10-22 13:45] LABS: TOTAL PROTEIN 6.8 g/dL (6.6-8.7)
[2018-10-22 13:47] LABS: GLUCOSE,RANDOM 86 mg/dL (74-109)
[2018-10-22 13:50] LABS: ALB/GLOB RATIO 1.3 (1.1-1.8); ALBUMIN 3.9 g/dL (4.0-5.0); ALKALINE PHOSPHATASE 94 U/L (35-104); ALT/SGPT 14 U/L (<33); AST/SGOT 28 U/L (10.0-35.0); CREATINE PHOSPHOKINASE 26 U/L (26-192)
[2018-10-22 14:01] LABS: THYROID STIMULATING HORMONE 0.82 uIU/mL (0.270-4.20)
[2018-10-22 14:43] LABS: URINE APPEARANCE SL CLOUDY; URINE BILIRUBIN NEGATIVE (NEGATIVE); URINE BLOOD TRACE-I (NEGATIVE); URINE COLOR YELLOW; URINE GLUCOSE (UA) NEGATIVE (NEGATIVE); URINE KETONE NEGATIVE (NEGATIVE); URINE LEUKOCYTE ESTERASE NEGATIVE (NEGATIVE); URINE NITRITE POSITIVE (NEGATIVE); URINE PROTEIN NEGATIVE (NEGATIVE); URINE UROBILINOGEN 0.2 E.U./dL (0.20 - 1.00)
[2018-10-22 14:50] LABS: URINE WBC NONE SEEN (0-2/hpf)
[2018-10-22 14:51] LABS: URINE BACTERIA FEW
== END 2018-10-22 15:37 | disposition home or self-care (01) ==
LOC: ER 12:23
DX: R53.1 Weakness (principal); R07.89 Other chest pain; R20.0 Anesthesia of skin; R06.00 Dyspnea, unspecified; Z79.01 Long term (current) use of anticoagulants; Z87.891 Personal history of nicotine dependence; Z85.528 Personal history of other malignant neoplasm of kidney
CPT/HCPCS: 80053; 81001; 82550; 82553; 84443; 84484; 85025; 85610; 85730; 93005; 93010; 99284; J7030